=== PATIENT | male | born 1980 | race Caucasian/White ===

== ENCOUNTER → 2020-03-02 | Outpatient (CLI) | payer OTHER ==
[~2020-03-02] MED LIST: PRILOSEC 20MG20 MG PO
== END ==
LOC: COL.RAD 07:30
DX: R10.11 Right upper quadrant pain (principal)

== ENCOUNTER → 2020-03-04 | Outpatient (CLI) | payer OTHER | LOC: COL.RAD 11:45 | DX: R10.11 Right upper quadrant pain (principal) | CPT/HCPCS: A9537; J2805 ==